=== PATIENT | female | born 1930 | race Caucasian/White ===

== ENCOUNTER 2016-09-02 20:16 | Inpatient (IN) | payer MEDICARE ==
--- NOTE | ~2016-09-02 | CN ---
Consultation Report [facility] [address] [place]. [address] NAME: KRYSTYNA BRITTON : 30 STATUS : ADM IN PAT#: [id number] AGE: 85 ADM/REG DATE : 09/02/16 MR#: [id number] REPORT SERV DATE: 09/03/16 DICTATED BY: JUAN PEREZ DATE: 09/02/16 REPORT STATUS : Draft TRANSCRIBED BY: MODL DATE: 09/02/16 CARDIOLOGY CONSULTATION DATE OF CONSULTATION: HISTORY OF PRESENT ILLNESS: This 85-year-old white female, nonsmoker and hypertensive, was admitted from [facility]. [facility], she had had some "feelings of not doing well," but not associated with syncope or near syncope. She has had several nights of orthopnea, however. Her B type natriuretic peptide is 5960 with a history of significant aortic stenosis being followed by Dr. Doherty and [facility]. Her INR is 2.4 on warfarin therapy; [facility] because of atrial fibrillation with slow ventricular response, which has improved in rate in the time she spent at [facility] and then coming here [facility]. Her heart rate now is in the 60 to 70 beats per minute range, and she is asymptomatic with the rhythm. She is not presently orthopneic. FAMILY HISTORY: Positive for heart disease. PREVIOUS SURGERIES: Include cholecystectomy, hysterectomy, Zenker's diverticulum, and cataracts. EKG shows atrial fibrillation with left ventricular hypertrophy. Her rate now is in the 65- beat per minute range. BUN is 46 with a creatinine of 1.4, troponin is 0.04. Liver function tests were unremarkable. Chest x-ray from [facility] revealed no focal infiltrates with cardiomegaly and hyperinflation changes of COPD. Her INR is therapeutic at 2.4. HOME MEDICATIONS: At the nursing facility included digoxin, Jantoven, valsartan, torsemide, Klor-Con, Sinemet, MiraLAX, vitamin D, eyedrops, Hydrocodone/APAP 7.5/500 t.i.d. p.r.n., and melatonin at night. REVIEW OF SYSTEMS: Otherwise all negative tonight. PHYSICAL EXAMINATION: VITAL SIGNS: Blood pressure is 145/85. HEAD: Normocephalic. EYES: Revealed very thick glasses. NOSE: Had no epistaxis. SKIN: Clear of ulcerations. She has stasis changes in her legs but no ulcerations. Her legs are not edematous tonight. NECK: Supple. Jugular venous distention is present at 20 degrees inclination. LUNGS: Remarkably clear. I hear no wheezes, rales, or rhonchi. HEART: Irregular rhythm, variable S1, normal S2. Grade 2-3/6 systolic ejection murmur of aortic stenosis heard at the base. No S3 gallop was heard. Consultation Report [facility] [id number] [facility] [place] [id number] NAME: KRYSTYNA BRITTON : 30 STATUS : ADM IN PAT#: [id number] AGE: 85 ADM/REG DATE : 09/02/16 MR#: [id number] REPORT SERV DATE: 09/03/16 DICTATED BY: JUAN PEREZ DATE: 09/02/16 REPORT STATUS : Draft TRANSCRIBED BY: JALEEL DATE: 09/02/16 ABDOMEN: Benign, nontender. EXTREMITIES: Had no clubbing, edema, or cyanosis. She does have neuropathic and painful legs, which limit her activity levels. NEUROLOGIC EXAM: Reveals no tremor tonight, although she is on Sinemet therapy for tremor. IMPRESSION: 1. Atrial fibrillation with slow ventricular response - improving off digoxin. 2. Hypertension. 3. Aortic stenosis - significant. 4. Parkinsonism, on Sinemet therapy. 5. Chronic pain syndrome. 6. Long-term warfarin anticoagulation. RECOMMENDATIONS: 1. Her heart rate is improving - she may not need a pacemaker. I will try not to reverse her Coumadin tonight with vitamin K. 2. Dr. Doherty will see her early in the morning. I will leave her n.p.o. until that time should he decide that she may need a pacing support. 3. Digoxin has been discontinued. 4. We will follow the INR. 5. Continue medications as listed except for the digoxin and the Jantoven until seen by Dr. Doherty. RB/JALEEL Juan Perez M.D. / [id number] CC: Georges Dhoerty M.D.
[~2016-09-02 20:16] MED LIST: *HOMEMEDS; B121000P IM; C2 PO; C25 PO; CORDARONE PO; CYMBALTA30 PO; DIOVAN HC2 PO; KLOR-CON M2020 MEQ PO; L20 PO; LEVAQUIN750 MG PO; LORT7 PO; LUMIGAN OPH; LUMIGAN2.5 ML OPH; MIRALAXPKT PO; MULTIVITAMI1 PO; NEXIUM40 PO; NORCO1 TAB PO; PRIM50B PO; SIN-CR PO; VITD PO; ZOCOR10 PO
[2016-09-02 21:12] LABS: ASCORBIC ACID (UR NOT ORDER) NEG (NEG); BILIRUBIN, URINE NEGATIVE (NEG); KETONE, URINE NEGATIVE (NEG); LEUKOCYTE ESTERASE(NOT OR NEG (NEG); WBC (NOT ORDERED) (RFLEX) 2 (0-5)
[2016-09-03] MEDS ORDERED: DEMA20 PO ×2 (04:49→10:34)
[2016-09-03] MEDS ORDERED: DIOVAN40 MG PO ×2 (04:49→10:37)
[2016-09-03] MEDS ORDERED: LAN125 PO ×2 (04:50→10:44)
[2016-09-03] MEDS ORDERED: MELA3 PO ×2 (04:52→10:53)
[2016-09-03] MEDS ORDERED: XALAT OPH ×2 (04:54→10:35)
[2016-09-03 05:50] LABS: INTERNATIONAL NORMAL RATI 2.5 UNITS (-); PROTIME (NOT ORD) 26.9 SEC (12.0-14.5)
[2016-09-03 06:07] LABS: BUN (BLOOD UREA NITROGEN) 34 MG/DL (6-23); CALCIUM, SERUM 8.7 MG/DL (8.5-10.4); CHLORIDE, SERUM 108 MMOL/L (96-112); CO2 (CARBON DIOXIDE) 27 MMOL/L (24-34); CREATININE 1.23 MG/DL (0.55-1.02); GFR AFRICAN AMERICAN 46 ML/MIN (>=60); GFR NON AFRICAN AMERICAN 40 ML/MIN (>=60); GLUCOSE, SERUM 96 MG/DL (60-99); POTASSIUM, SERUM 3.9 MMOL/L (3.5-5.3)
[2016-09-03 06:10] LABS: SODIUM, SERUM 145 MMOL/L (135-148)
[2016-09-03] MEDS ORDERED: KLOR-CON M2020 MEQ PO (10:34)
[2016-09-03] MEDS ORDERED: C1 PO (10:35)
[2016-09-03] MEDS ORDERED: NORCO1 TAB PO (10:43)
[2016-09-03] MEDS ORDERED: SIN-CR PO (10:43)
[2016-09-03] MEDS ORDERED: VITD PO (10:44)
[2016-09-03] MEDS ORDERED: MIRALAX POWDER1 PKT PO (10:53)
[2016-09-03 13:08] LABS: BASOPHILS 0.5 %; BASOPHILS ABSOLUTE 0.02 10/3/uL (0.0-0.16); EOSINOPHILS 1.4 %; EOSINOPHILS ABSOLUTE 0.06 10/3/uL (0.0-0.53); HEMATOCRIT 35.1 % (36.0-48.0); HEMOGLOBIN 11.7 g/dL (12.0-16.0); LYMPHOCYTES 27.1 %; LYMPHOCYTES ABSOLUTE 1.13 10/3/uL (0.67-4.30); MEAN CORPUS HGB CONC 33.3 g/dL (32.0-36.0); MEAN CORPUSCULAR HEMOGLOB 31.5 pg (26.0-34.0); MEAN CORPUSCULAR VOLUME 94.6 fL (80-100); MEAN PLATELET VOLUME 9.5 fL (9.2-13.0); MONOCYTES 9.6 %; NEUTROPHILS 61.4 %; NEUTROPHILS ABSOLUTE 2.56 10/3/uL (2.02-8.40); PLATELET COUNT 185 10/3/uL (150-400); RBC DISTRIBUTION WIDTH 12.6 % (12.0-16.0); RED CELL COUNT 3.71 10/6/uL (4.0-5.6); WHITE BLOOD CELLS 4.2 10/3/uL (4.5-10.5)
[2016-09-03 13:10] LABS: MANUAL DIFF NO %
[2016-09-04 06:34] LABS: INTERNATIONAL NORMAL RATI 2.6 UNITS (-); PROTIME (NOT ORD) 27.3 SEC (12.0-14.5)
== END 2016-09-04 11:57 | disposition home or self-care (01) | DRG 244 ==
LOC: 5NO 20:16
PROVIDERS: Internal Medicine Cardiovascular Disease
PROC: 0JH604Z Insertion of Pacemaker, Single Chamber into Chest Subcutaneous Tissue and Fascia, Open Approach (ICD-10-PCS; principal; 2016-09-03)
PROC: 02HK3JZ Insertion of Pacemaker Lead into Right Ventricle, Percutaneous Approach (ICD-10-PCS; 2016-09-03)
DX: I48.91 Unspecified atrial fibrillation (principal); G20 Parkinson's disease; I35.0 Nonrheumatic aortic (valve) stenosis; I10 Essential (primary) hypertension; G89.4 Chronic pain syndrome; Z90.49 Acquired absence of other specified parts of digestive tract; Z79.01 Long term (current) use of anticoagulants
CPT/HCPCS: 33207; 71010; 80048; 81001; 85025; 85610; 93005; A9270-GY; C1769; C1786; C1892; C1898; J0690; J3010; Q9967